=== PATIENT | female | born 1960 | race Caucasian/White ===

== ENCOUNTER → 2019-06-07 | Outpatient (CLI) | payer OTHER | LOC: RAD 08:27 | DX: Z12.31 Encounter for screening mammogram for malignant neoplasm of breast (principal) ==

== ENCOUNTER 2020-02-24 06:59 | Emergency (ER) | payer OTHER ==
[~2020-02-24] VITALS: Ht 162.6 cm; Wt 79.8 kg
[2020-02-24 07:47] VITALS: BP 132/59
== END 2020-02-24 08:02 | disposition home or self-care (01) ==
LOC: ER 06:59
DX: R19.7 Diarrhea, unspecified (principal)

== ENCOUNTER 2020-06-26 07:31 | Emergency (ER) | payer OTHER ==
[~2020-06-26] VITALS: Ht 147.3 cm; Wt 72.6 kg
[2020-06-26 07:35] VITALS: BP 136/65
== END 2020-06-26 08:52 | disposition home or self-care (01) ==
LOC: ER 07:31
DX: R68.83 Chills (without fever) (principal); R53.83 Other fatigue; R51.9 Headache, unspecified; R11.0 Nausea; Z20.828 Contact with and (suspected) exposure to other viral communicable diseases

== ENCOUNTER 2021-05-24 15:09 | Emergency (ER) | payer OTHER ==
[~2021-05-24] VITALS: Ht 121.9 cm; Wt 84.4 kg
[2021-05-24 15:42] LABS: ABSOLUTE NEUTROPHILS 11.4 thou/uL (1.4-8.2); BASOPHILS 0.3 % (0.0-2.0); EOSINOPHILS 1.2 % (0.0-3.0); HEMATOCRIT 39.7 % (37.0-47.0); HEMOGLOBIN 13.2 gm/dL (12.0-15.0); LYMPHOCYTES 15.6 % (24.0-44.0); MCH 27.7 pg (26.0-34.0); MCHC 33.3 g/dL (28.0-37.0); MCV 83.3 fL (80.0-100.0); MONOCYTES 4.6 % (1.0-8.0); PLATELET COUNT 271 thou/uL (150-400); POLYS 78.3 % (36.0-66.0); RBC 4.77 mil/uL (4.20-5.00); RDW 13.7 % (10.5-14.5); WBC 14.5 thou/uL (4.0-11.0)
[2021-05-24 15:49] LABS: ANION GAP 8 mmol/L (7-16); BUN 23 mg/dL (7-18); CHLORIDE 106 mmol/L (98-107); CO2 27 mmol/L (21-32); CREATININE 0.6 mg/dL (0.6-1.0); GLUCOSE 101 mg/dL (74-106); POTASSIUM 3.7 mmol/L (3.5-5.1); SODIUM 141 mmol/L (136-145)
[2021-05-24 16:00] LABS: ALBUMIN 3.9 g/dL (3.4-5.0); DIRECT BILIRUBIN < 0.1 mg/dL (<0.1-0.2); LIPASE 182 U/L (73-393); SGOT 20 U/L (15-37); SGPT 34 U/L (14-59); TOTAL BILIRUBIN 0.4 mg/dL (0.2-1.0); TOTAL PROTEIN 7.8 g/dL (6.4-8.2)
[2021-05-24 17:18] LABS: URINE BILIRUBIN NEGATIVE (Negative); URINE BLOOD TRACE (Negative); URINE CLARITY CLEAR; URINE COLOR YELLOW; URINE GLUCOSE-RANDOM* NEGATIVE (Negative); URINE KETONES NEGATIVE (Negative); URINE LEUKOCYTES-REFLEX NEGATIVE (Negative); URINE NITRITE-REFLEX NEGATIVE (Negative); URINE PROTEIN (DIPSTICK) NEGATIVE (Negative); URINE SPECIFIC GRAVITY 1.015 (1.005-1.035); URINE UROBILINOGEN 0.2 E.U./dl (0.2-1.0)
[2021-05-24] MEDS ORDERED: ONDANSETRON HCL4 M2 PO (17:20)
[2021-05-24 17:29] VITALS: BP 121/60
--- NOTE | 2021-05-25 07:07 | EKG ---
[address] [address] ELECTROCARDIOGRAM REPORT Name: LATOSHA VAUGHN [id number] Admission: 05/24/21 Attend Phys: Discharge: 05/24/21 Date of : 62 Report #: [id number] [facility] ED Test Date: 2021-05-24 Test Time: 15:42:36 Pat Name: LATOSHA RACHEL MONTANO Department: Room: Gender: F Digital Marketing Specialist: : [id number] Requested By: Chuck Devi Order Number: [id number] MD: Eusebio Biggs Measurements Intervals [place] Rate: 66 P: 30 SC: 160 QRS: -1 QRSD: 99 T: 51 QT: 394 QTc: 413 Interpretive Statements Sinus rhythm No previous ECG available for comparison Electronically Signed On 05-25-2021 7:07:26 CDT by Eusebio Biggs [email or web address] <ELECTRONICALLY SIGNED> By: Eusebio Biggs MD, [facility] 05/25/21 [id number] Eusebio Biggs MD, FACC /EPI
== END 2021-05-24 17:29 | disposition home or self-care (01) ==
LOC: ER 15:09
PROVIDERS: Nurse Practitioner
DX: K52.9 Noninfective gastroenteritis and colitis, unspecified (principal); Z20.822 Contact with and (suspected) exposure to COVID-19; R11.2 Nausea with vomiting, unspecified